=== PATIENT | male | born 1995 | race African-American/Black ===

== ENCOUNTER 2024-10-29 14:32 | Inpatient (IN) | payer BC ==
[2024-10-29 15:14] LABS: #Basophils 0.04 10x3/uL (0.0-0.2); #Eosinophils 0.43 10x3/uL (0.0-0.7); #Monocytes 0.46 10x3/uL (0.11-0.59); #Neutrophils 2.96 10x3/uL (1.40-6.50); %Basophils 0.8 % (0.0-1.0); %Eosinophils 8.2 % (0.0-10.0); %Lymphocytes 25.6 % (21.0-51.0); %Monocytes 8.8 % (0.0-10.0); %Neutrophils 56.4 % (42.0-75.0); Hematocrit 41.8 % (42.0-52.0); Hemoglobin 14.8 g/dL (14.0-18.0); Mean Corpuscular Hemoglobin 29.6 pg (27.0-31.0); Mean Corpuscular Volume 83.6 fL (78.0-98.0); Platelet Count 180 10x3/uL (130-400); Red Blood Cell (RBC) Count 5.00 mill/uL (4.70-6.10); White Blood Cell (WBC) Count 5.24 10x3/uL (4.8-10.8)
[2024-10-29 15:26] LABS: INR-International Normal Ratio 1.0; Prothrombin Time 13.1 sec (12.0-14.7)
[2024-10-29 15:27] LABS: PTT 30.4 sec (22.9-36.1)
[2024-10-29 15:40] LABS: Acetaminophen Less than 10 mcg/mL (Less than 10); Magnesium 2.0 mg/dL (1.6-2.6); Salicylate Less than 8.0 mg/dL (Less than 8.0)
[2024-10-29 15:42] LABS: ALT (SGPT) 24 U/L (Less than 45); AST (SGOT) 33 U/L (11-34); Albumin 4.1 g/dL (3.1-4.5); Alkaline Phosphatase 60 U/L (40-110); Anion Gap 13 mmol/L (10-20); BUN (Urea Nitrogen) 10 mg/dL (8.9-20.6); Bilirubin, Total 0.6 mg/dL (0.3-1.2); CK (CPK) 422 U/L (30-200); Calc. Creatinine Clearance 0 mL/min (70-130); Calcium 8.9 mg/dL (7.8-10.44); Carbon Dioxide 24 mmol/L (22-29); Chloride 107 mmol/L (98-107); Globulin 3.5 g/dL (2.4-3.5); Glucose 89 mg/dL (70-105); Potassium 4.2 mmol/L (3.5-5.1); Sodium 140 mmol/L (136-145)
[2024-10-29 15:46] LABS: Troponin I Less than 0.010 ng/mL (< 0.028)
[2024-10-29] MEDS ORDERED: Aspirin Chewable 81 MG TAB ONE (15:48)
[2024-10-29 17:17] LABS: Cocaine Metabolite Screen Negative (Negative); THC/Cannabinoid Screen Negative (Negative); Tricyclic Screen Negative (Negative)
[2024-10-29] MEDS ORDERED: hydrALAZINE 20 MG/ML VIAL SLOW IVP PRN (17:35)
[2024-10-29 23:09] VITALS: BMI 31.6
[2024-10-30] MEDS: Acetaminophen 500 MG TAB PO SCH (04:58)
[2024-10-30 05:06] LABS: Cardiac Risk 6.1 (Less than 4.5); Cholesterol 196.0 mg/dl (< 200 Desired); HDL Cholesterol 32.0 mg/dL (>60 Neg Risk); LDL Cholesterol, Calculated 136.0 mg/dL; Triglycerides 138.0 mg/dL (Less than 150)
[2024-10-30] MEDS ORDERED: Ondansetron PF 4 MG/2 ML Vial IVP PRN (08:52)
[2024-10-30] MEDS: Aspirin 81 mg Enteric Coated Tablet PO SCH (09:15)
[2024-10-30] MEDS: Enoxaparin 40 MG (0.4 mL) SYRINGE SC SCH (09:15)
[2024-10-30] MEDS ORDERED: Albuterol 200 PUFF (6.7GM INHALER) INH PRN (13:07)
[2024-10-30] MEDS ORDERED: Albuterol 2.5 MG (3 mL) NEB NEB PRN (13:55)
[2024-10-30] MEDS: Acetaminophen 325 MG TAB PO PRN (22:25)
[2024-10-31 11:31] VITALS: TEMP 97.6
[2024-10-31 12:09] VITALS: BP 125/73
[2024-11-29] MEDS ORDERED: Iopamidol 370 76% 100 ML VIAL ONE (10:10)
== END 2024-10-31 15:13 | disposition home or self-care (01) | DRG 312 ==
LOC: ERS 14:32 → 2NO 16:27 → OBSVTOIN 10-30 14:02
PROVIDERS: ADMIT Internal Medicine; ATTEND Internal Medicine
DX: R55 Syncope and collapse (principal); G81.94 Hemiplegia, unspecified affecting left nondominant side; M47.812 Spondylosis without myelopathy or radiculopathy, cervical region; J45.20 Mild intermittent asthma, uncomplicated; Z79.899 Other long term (current) drug therapy; Z79.51 Long term (current) use of inhaled steroids
CPT/HCPCS: 36415; 36416; 70450; 70496; 70498; 70551; 72125; 72131; 72141; 72148; 80053; 80061; 80306; 80307; 82550; 83605; 83735; 84443; 84484; 85025; 85610; 85730; 93005; 93306; 96372; G0378; J1650; Q9967